=== PATIENT | male | born 2005 | race Caucasian/White ===

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

== ENCOUNTER → 2025-05-02 | Outpatient (CLI) | payer BC, SELFPAY ==
--- OUTSIDE RECORDS SUMMARY | 2025-05-02 12:42 | XMS RPT_ITS | CCD ---
Author Organization [facility] Care Team Providers Care Bag Maker Name Role Phone AMARI VILLARREAL Admitting Unavailable AMARI VILLARREAL Attending Unavailable AMARI VILLARREAL Primary Care Unavailable Emre Price Primary Care Provide r Allergies Allergy Classification Reported Allergen(s) Allergy Type Date of Onset Reaction(s) Facility (1 source) Mold Extract Drug Allergy 8 Unknown [facility] Work Phone: (1 source) Penicillins Propensity to adverse reactions 7 Nausea And Vomiting [facility] (1 source) Seasonal allergy Propensity to adverse reactions 6 Other (See Comments) [facility] Medications Current Medications Medication Drug Class(es) Dates Sig (Normalized) Sig (Original) [id number] 200 actuat albuterol 0.09 mg/actuat metered dose inhaler (1 source) beta2-Adrenergic Agonist Start: 12-21-2021 take 2 puff(s) by inhalation every four hours as needed for cough albuterol 108 (90 Base) MCG/ACT inhaler Inhale 2 Puffs into the lungs every 4 hours as needed for Wheezing, Shortness of Breath or Cough Use with spacer. 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; 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] Onset: 03-12-2020 03-12-2020 Chronic Other screening for suspected conditions (not mental disorders or infectious disease) (1 source) Patient encounter status; Translations: [Encounter for screening, unspecified] Episodic Sprains and strains (2 sources) Sprain of ankle; Translations: [Sprain of unspecified ligament of right ankle, initial encounter] Episodic Past or Other Problems Problem Classification Problem Date Documented Da te Episodic/Chronic Other nutritional; endocrine; and metabolic disorders (1 source) General finding of height; Translations: [Short stature (child)] Onset: 03-12-2020 03-12-2020 Episodic Results Test Name Value Interpretation Reference Range Facil ity Hemoglobin HPLCon 01-03-2022 A Hgb 96.6 % Normal 95.0-100.0 [facility] Comment on above: Order Comment: Relea se to patient->Automatic 98789&Blood Performed By: #### H HPLC #### [place] [address] A2Hgb 2.8 % Normal 1.8-3.2 [facility] Comment on above: Order Comment: Relea se to patient->Automatic 30194&Blood Performed By: #### H HPLC #### [place] [address] Comment ----- Normal [facility] Comment on above: Order Comment: Relea se to patient->Automatic 40665&Blood Result Comment: No a bnormal hemoglobins detected. Performed By: #### H HPLC #### [place] [address] Hgb <1.0 Normal 0.0-1.9 [facility] Comment on above: Order Comment: Relea se to patient->Automatic 56117&Blood Performed By: #### H HPLC #### [place] [address] Hemoglobin HPLCon 12-29-2021 Hemoglobin Variants ----- Normal [facility] Comment on above: Order Comment: Relea se to patient->Automatic 22461&Blood Performed By: #### H HPLC #### [address] [address] Progress Noteon 12-21-2021 Film Developer Authentication Interface Message Text Patient ID: Abundio Feliciano is a 16 y.o. male. His chief complaint(s) include: 16 YEAR WELL CHILD (No concerns) Assessment 1. Encounter for routine child health examination without abnormal findings 2. Asthma, exercise induced 3. Exercise counseling 4. Encounter for dietary counseling and surveillance 5. Need for vaccination Plan Abundio was seen today for 16 year well child. Diagnoses and all orders for this visit: Encounter for routine child health examination without abnormal findings - PHQ9 Assessment With Score - Health Risk Assessment - CRAFFT Asthma, exercise induced - albuterol 108 (90 Base) MCG/ACT inhaler; Inhale 2 Puffs into the lungs every 4 hours as needed for Wheezing, Shortness of Breath or Cough Use with spacer. Exercise counseling Encounter for dietary counseling and surveillance Need for vaccination - Meningococcal B (BEXSERO) Return in about 1 year (around 12/21/2022) for well check. Subjective He is accompanied by his mother. 16 YEAR WELL CHILD Home: Abundio eats meals with family, has an adult to turn to for help and is permitted and able to make independent decisions. Abundio has no home risk identified. Education: Abundio is in freshman year of college. Eating: Abundio eats regular meals including fruits and vegetables, eats breakfast, limits fast food, drinks non-sweetened liquids, has a calcium source and has concerns about body appearance (stature). Abundio has not dieted in the last year and does not have an eating risk identified. Activities & Sports: Abundio has friends, plays individual sports, plays team sports, plays competitive sports and participates in community activities. Drugs: Abundio does not use tobacco, does not use drugs, does not use alcohol and does not vape. Safety: Abundio has a violence free home. Suicidality: Aubndio has ways to cope with stress. Output Urine and Stool Pattern: Urine and Stool Pattern: Normal stool pattern, normal urine pattern. Sleep Sleeping Difficulty: no difficulty sleeping Teen Anticipatory Guidance The following anticipatory guidance was reviewed during the visit: Nutrition: limit junk food/fast food and soft drinks. Safety: home safety, use safety helmet/gear with activities and don't carry or use weapons. Social: avoid or limit screen time, explore heritage and cultural diversity, parental limits and consequences for unacceptable behavior and bullying. Health: age appropriate dental care, age appropriate sleep habits, elevated noise and hearing, avoid situations where drugs and alcohol are present, how to resist peer pressure to smoke, drink, use drugs, don't use tobacco/ alcohol/ drugs/ diet pills/ inhalants, don't smoke or chew tobacco, talk with trusted adult if feeling sad or nervous, learn to manage time and activities, be responsible for attendance/ homework/ course selection, learn about self and strengths, recognize and deal with stress and limit sun exposure/use sunscreen. Screenings Previous Vaccine Reactions: No. Life events information was reviewed-no referral needed Tuberculosis Concerns: Negative Tuberculosis Screen Concerns: no TB Risk Factors Hearing Vision Concerns: Patient wears glasses or contact lenses. The caregiver has no concerns about the patient's hearing. The caregiver has no concerns about the patient's vision. Hyperlipidemia Concerns: Negative Hyperlipidemia Screen Concerns: no Hyperlipidemia Risk Factors Primary Care Review of Systems Objective Vital Signs 12/21/21 1727 12/21/21 1729 BP: 134/83 132/70 Pulse: (!) 110 88 Weight: 63.8 kg Height: 166.3 cm Body mass index is 23.07 kg/m . Physical Exam Nursing note reviewed. Constitutional: He appears well. He is active. No distress. HENT: Head: Atraumatic. Ears: Right Ear: Tympanic membrane and external ear normal. Left Ear: Tympanic membrane and external ear normal. Nose: Nose normal. Mouth/Throat: Mucous membranes are moist. Dentition is normal. Oropharynx is clear. Eyes: Conjunctivae and EOM are normal. No strabismus. Pupils are equal, round, and reactive to light. Neck: Neck supple. Thyroid normal. Cardiovascular: Normal rate, regular rhythm, S1 normal and S2 normal. Pulses are palpable. Heart murmur not heard. Pulmonary/Chest: Breath sounds normal. No respiratory distress. Exhibits no deformity. Abdominal: Soft. Bowel sounds are normal. He exhibits no distension and no mass. There is no hepatosplenomegaly. There is no abdominal tenderness. Genitourinary: Testes and penis normal. No inguinal hernia noted. Musculoskeletal: Cervical back: Normal range of motion and neck supple. Lumbar back: No scoliosis. General: Normal range of motion. Neurological: He is alert. He has normal strength. He exhibits normal muscle tone. Gait normal. Skin: Skin is warm. Skin is not pale. Findings: No rash. Vitals reviewed: Blood pressure 132/70, pulse 88, he (more content not included)... Normal [facility] Inital Evaluation (1) - PTon 09-10-2021 Inital Evaluation (1) - PT [facility] [address] [place] [address] / REHABILITATION SERVICES INITIAL EVALUATION MR#: [id number] Acct: [id number] Name: ABUNDIO FELICIANO Rep #: [id number] : 2005 16 From: Rico Conway DPT, MICHAEL, CSCS Referring Dr.: CARISSA Martinez Status: REG R CR Insurance: [employer] SELF PAY INSURANCE Patient's Visit Information ABUNDIO FELICIANO is a 16 year old M referred to Physical Therapy by Trent Martinez PA-C with a diagnosis of R shoulder strain. Date of Evaluation: 09/10/21 Physical Therapist: Rico Conway DPT, MICHAEL, CSCS - Visit Plan Frequency: 2-3x /Week Duration: 4-6 Weeks Plan: 2-3x/week for 4 weeks for... 1. STM, DTR to R scm, scalenes, UT, lev scap and pec major. Stretch same, MH. 2. restrengthen scap and R shoulder. progress to full UE strength including body weight to tolerance so patient can get back to wrestling. - Subjective R shoulder pain. [place] a pop during wrestling 3 weeks ago, no problems prior. pain ever since on off. Worse with carrying things. No discomfort at rest. Pain is mild 2-3/10 sharply and then gone. Worse 2 weeks ago.No numbness or tingling. No weakness. Doctor called it a sprain. can take iburofen and is taking daily. Not icing. Just resting otherwise. Overall 70% better. Sleeping is OK. Is R handed. School is fine, [employer] Senior this year, will wrestle in College. No other hobbies, enjoys lifting 4 days a week but unabe right now. - Pain R collarbone Pain Intensity (Out of 10): 0 Pain Intensity Range: 0, 3 - Objective R SCM, pectoral major and lev scap/scalene tight and moderately tender to palpation. Posture is forward head and l scapula elevated higher than R with protraction B in scap. Pain with resisted pec on R and IR slightly and flexion minimally and abduction slightly. Scap mobility is fair with some pain with resisted depression. Elbow and wrist and thumb AROM and strength. reflexes 2/3 B bi and tri. Sensation UE WNL to gross light touch. cervical aROM WFL with some tightness looking L but no pain or limtations. - c/s compression. - ext rotation lag test. - drop arm. - HK. - Neer - Balance/Special Test Scores Quick DASH Score: 15.9075 - Goals Goal 1:: Full aROM R UE without pain or hesitation including able to do dips, pushups without pain. Goal Time Frame: 4-6 Weeks Goal 2:: Pt feel 100% back to normal activitiy including lifting at school without pain Goal Time Frame: 4-6 Weeks Goal 3:: 11 score on Quick DASH Goal Time Frame: 4-6 Weeks - Rehabilitation Potential Physical Therapy Diagnosis: R scalene, pec, lev scap strain Rehabilitation Potential: Good - Anticipated Interventions Patient/Client Instruction: Educate patient on: Condition, Plan of Care For the Purpose of:: To decrease pain, To improve muscle performance and motor function, To increase tolerance to activity/condition/po sition, To improve ability of physical actions for home/community/work/l eisure Therapeutic Exercise to Include: Strength training, Postural training, Flexibilty training For the Purpose of:: To decrease pain, To decrease swelling/inflammation , To increase tolerance to activity/condition/po sition Manual Therapy Techniques to Include: Trigger point massage, Passive ROM, Soft tissue mobilization For the Purpose of:: To decrease pain, To increase tolerance to activity/condition/po sition Thermo therapy (hot pack): Yes For the Purpose of:: To decrease pain Thank you for the opportunity to evaluate your patient. For Medicare and Medicare HMO plans, please review the plan of care and approve it. It will need to be FAXED BACK to us at [phone] for Medicare purposes. For Medicare only, by signing this I certify the plan of care. Please let me know if there are questions or concerns regarding this plan of care. Physician Signature: Date : 09/10/21 1545 CC: PENNY Sauceda; CARISSA Martinez EBG Signed Normal [facility] CLAVICLE RTon 08-16-2021 CLAV[address] [address] Patient: ABUNDIO FELICIANO Phone#: : 2005 Age: 16 Gender: M Pt. Type: Out Account: [id number] Location: Ordering: AMARI VILLARREAL Exam Date: 08/16/2021/13:50 Family Phys: Charge Code: [id number] Physician: [place] Order #: [id number] DLP Dose#: PROCEDURE: X-RAY CLAVICLE RT COMPARISON: None. INDICATIONS: Injury. FINDINGS: BONES: Normal. No significant arthropathy or acute abnormality. Patient is skeletally immature. Humeral head is normal in contour. SOFT TISSUES: Negative. No visible soft tissue swelling. EFFUSION: None visible. OTHER: Negative. CONCLUSION: 1. No acute osseous abnormality. If there is concern for ligamentous injury consider bilateral acromioclavicular view with weight-bearing. Dictated by: Alva Clarke MD on 08/16/2021 at 16:49 Approved by: Alva Clarke MD on 08/16/2021 at 16:53 Normal [facility] Progress Noteon 08-16-2021 Film Developer Authentication Interface Message Text Patient ID: Abundio Feliciano is a 16 y.o. male. His chief complaint(s) include: Shoulder Injury (Injured right should 2 days ago during wrestling match, area is painful, no redness or swelling) Assessment 1. Pain of right clavicle Clint Del Castillo was seen today for shoulder injury. Diagnoses and all orders for this visit: Pain of right clavicle - X-Ray Clavicle Right; Future - Cancel: AMB Referral To Orthopedic Surgery; Future - AMB Referral To Orthopedic Surgery; Future Return if symptoms worsen or fail to improve. Will obtain an Xray of the right clavicle. Will also refer to [facility] for evaluation and recommendations. Mom would like the referral now vs. Waiting. Discussed wearing a sling and taking ibuprofen PRN pain. Discussed possible sprain/strain vs. Collar bone fracture. Additional follow up may be determined after results. May continue to apply ice PRN. Please call for any new or worsening symptoms or concerns. Subjective HPI Comments: Here today due to right collar bone pain. Monday was wrestling and he felt and heard a pop. When he breathes he feels a sharp pain; can move His arm but the collar bone area hurts. No bruising or swelling reported. Has been using ice PRN; ibuprofen yesterday and it seemed to help some. Slept well. Denies parasthesia. He is accompanied by his mother. Independent history obtained from mother. Shoulder Injury This problem is new. Primary Care Review of Systems Objective Vital Signs 08/16/21 1305 Temp: 36.4 C (97.6 F) TempSrc: Temporal Weight: 54.3 kg There is no height or weight on file to calculate BMI. Physical Exam Constitutional: He appears well. He is active. No distress. HENT: Head: Atraumatic. Mouth/Throat: Mucous membranes are moist. Eyes: Conjunctivae are normal. Right eyelid exhibits no discharge. Left eyelid exhibits no discharge. Right conjunctiva is not injected. Left conjunctiva is not injected. Cardiovascular: Normal rate, regular rhythm, S1 normal and S2 normal. Heart murmur not heard. Pulmonary/Chest: Effort normal and breath sounds normal. There is normal air entry. No stridor. No respiratory distress. Air movement is not decreased. He has no wheezes. He has no rhonchi. He has no rales. Exhibits no retraction. Genitourinary: Did not examine. Musculoskeletal: Cervical back: Normal range of motion. General: Tenderness (medial aspect of right clavicle; no crepitus palpated; no ecchymosis, color and temperature even overlying the area. Full ROM of right shoulder- reports discomfort in the medial aspect of the clavicle with ROM of the shoulder) present. No deformity, signs of injury or edema. Normal range of motion. Neurological: He is alert. Skin: Skin is warm. Skin is not pale. Findings: No rash. Vitals reviewed: Temperature 36.4 C (97.6 F), temperature source Temporal, weight 54.3 kg. Normal [facility] Encounters Encounter Date Encounter Type Care Provider Facility Start: 12-29-2021 End: 12-29-2021 Subsequent hospital visit by physician Emre MARION Work Phone: [facility] Comment on above: Screening for condit ion Start: 09-21-2021 End: 09-21-2021 Discharged [facility] Start: 08-16-2021 End: 08-16-2021 ambulatory AMARI VILLARREAL [facility] Plan of Treatment Date Care Activity Detail Author Start: 11-02-2025 Tetanus Diphtheria a nd Pertussis Vaccines (6 - Td or Tdap) Tetanus Diphtheria and Pertussis Vaccines (6 - Td or Tdap) [facility] Start: 12-21-2022 Well Visit Well Visit [facility] Start: 02-03-2022 FLU (#1) FLU (#1) [facility] Hemoglobin fractj/qu antj chromotography Hemoglobin HPLC (Lab Collect) Lab Routine Screening for condition 12/29/2021 2[facility] PM [facility] Work Phone: Immunizations Immunization Date Immunization Notes Care Provider Gloria melgoza 12-21-2021 meningococcal B vacc ine, recombinant, OMV, adjuvanted Emre Marcelino APRN-SCOUT LEASER Work Phone: [facility] 12-17-2020 meningococcal B vacc ine, recombinant, OMV, adjuvanted Emre Marcelino APRN-SCOUT LEASER Work Phone: [facility] 12-17-2020 meningococcal polysaccharide (groups A, C, Y and W-135) diphtheria toxoid conjugate vaccine (MCV4P) Emre Marcelino APRN-SCOUT LEASER Work Phone: [facility] 10-01-2020 PFIZER (purple cap) COVID-19, mRNA, LNP-S, 30mcg/0.3mL dose Emre Fischern SQL REPORT WRITER-SCOUT LEASER Work Phone: [facility] 09-04-2020 PFIZER (purple cap) COVID-19, mRNA, LNP-S, 30mcg/0.3mL dose Emre Sonianan SQL REPORT WRITER-SCOUT LEASER Work Phone: [facility] 12-17-2019 hepatitis A vaccine, pediatric/adolescent dosage, 2 dose schedule Emre Marcelino SQL REPORT WRITER-SCOUT LEASER Work Phone: [facility] 12-17-2019 Human Papillomavirus 9-valent vaccine [facility]re [facility] Work Phone: [facility] 12-14-2018 hepatitis A vaccine, pediatric/adolescent dosage, 2 dose schedule Emre Sonianan SQL REPORT WRITER-SCOUT LEASER Work Phone: [facility] 12-14-2018 Human Papillomavirus 9-valent vaccine Emre Sonianan SQL REPORT WRITER-[facility] Work Phone: [facility] 11-03-2015 meningococcal oligosaccharide (groups A, C, Y and W-135) diphtheria toxoid conjugate vaccine (MCV4O) [facility]re FischerC[facility] Work Phone: [facility] 11-03-2015 tetanus toxoid, redu meg diphtheria toxoid, and acellular pertussis vaccine, adsorbed Emre Sonianan SQL REPORT WRITER-SCOUT LEASER Work Phone: [facility] 09-28-2012 poliovirus vaccine, inactivated Emre Sonianan SQL REPORT WRITER-SCOUT LEASER Work Phone: [facility] 01-05-2009 diphtheria, tetanus toxoids and acellular pertussis vaccine Emre Marcelino SQL REPORT WRITER-[facility] Work Phone: [facility] 01-05-2009 Diphtheria, tetanus toxoids and acellular pertussis vaccine, and poliovirus vaccine, inactivated Emre [facility] Work Phone: [facility] 01-05-2009 measles, mumps and rubella virus vaccine [facility]re [facility] Work Phone: [facility] 01-05-2009 poliovirus vaccine, inactivated [facility]re [facility] Work Phone: [facility] 01-05-2009 varicella virus vaccine Sophia ld [facility] Work Phone: [facility] 07-22-2005 diphtheria, tetanus toxoids and acellular pertussis vaccine [facility] Work Phone: [facility] 07-22-2005 poliovirus vaccine, inactivated [facility] Work Phone: [facility] 05-10-2005 haemophilus influenz ae type b vaccine, PRP-T conjugate [facility]re [facility] Work Phone: [facility] 05-10-2005 varicella virus vaccine Sophia ld [facility] Work Phone: [facility] 04-13-2005 haemophilus influenz ae type b vaccine, PRP-T conjugate [facility] Work Phone: [facility] 04-05-2005 diphtheria, tetanus toxoids and acellular pertussis vaccine [facility] Work Phone: [facility] 04-05-2005 haemophilus influenz ae type b vaccine, PRP-T conjugate [facility] Work Phone: [facility] 01-21-2005 measles, mumps and rubella virus vaccine Emrejane [facility] Work Phone: [facility] 01-21-2005 pneumococcal conjuga te vaccine, 7 valent [facility] Work Phone: [facility] 2004 hepatitis B vaccine, pediatric or pediatric/adolescent dosage Emre Ryland SQL REPORT WRITER-SCOUT LEASER Work Phone: [facility] 2004 pneumococcal conjuga te vaccine, 7 valent Emre Marcelino SQL REPORT WRITER-SCOUT LEASER Work Phone: [facility] 2004 diphtheria, tetanus toxoids and acellular pertussis vaccine Emre Marcelino SQL REPORT WRITER-[facility] Work Phone: [facility] 2004 haemophilus influenz ae type b vaccine, PRP-T conjugate Emre Sonianan SQL REPORT WRITER-[facility] Work Phone: [facility] 2004 pneumococcal conjuga te vaccine, 7 valent Emre Marcelino SQL REPORT WRITER-[facility] Work Phone: [facility] 2004 poliovirus vaccine, inactivated Emre Marcelino SQL REPORT WRITER-[facility] Work Phone: [facility] 2004 diphtheria, tetanus toxoids and acellular pertussis vaccine Emre Marcelino SQL REPORT WRITER-[facility] Work Phone: [facility] 2004 haemophilus influenz ae type b vaccine, PRP-T conjugate Emre Sonianan SQL REPORT WRITER-[facility] Work Phone: [facility] 2004 pneumococcal conjuga te vaccine, 7 valent Emre Sonianan SQL REPORT WRITER-[facility] Work Phone: [facility] 2004 poliovirus vaccine, inactivated Emre Marcelino SQL REPORT WRITER-SCOUT LEASER Work Phone: [facility] 2004 hepatitis B vaccine, pediatric or pediatric/adolescent dosage Emre Marcelino SQL REPORT WRITER-[facility] Work Phone: [facility] 2004 hepatitis B vaccine, pediatric or pediatric/adolescent dosage Emre Marcelino SQL REPORT WRITER-SCOUT LEASER Work Phone: [facility] Payers Date Payer Category Payer Unknown [employer] [id number] 2012-Present [address] [place] [address] [id number] 1970 Unknown [id number] Self-pay SELF PAY INSURANCE [id number] Unknown [id number] Social History Date Type Detail Facility Start: 09-20-2017 Tobacco smoking stat [facility] Unknown if ever smoked [facility] Work Phone: Start: 2004 Sex Assigned At Male W [facility] Work Phone: Start: 12-21-2021 Tobacco smoking stat [facility] Never smoked tobacco [facility] Start: 12-21-2021 Tobacco use and exposure Smokeless tobacco non-user [facility] Start: 12-21-2021 Alcohol intake Not Asked [facility] Start: 2004 Sex Assigned At Not on file [facility] Start: 12-19-2021 End: 12-29-2021 Exposure to SARS-CoV-2 (event) Not sure [facility] Evaluation note Note Date & Type Note Facility Evaluation note No assessment information availa ble [facility] Work Phone: Evaluation note Note Date & Type Note Facility Evaluation note Diagnosis Screening for condition Screening for unspecified condition documented in this encounter [facility] Summary Purpose Family History No Family History Records FoundNo Family History Records FoundNo Family History Records Found Advance Directives No Advanced Directives Records FoundNo Advanced Directives Records FoundNo Advanced Directives Records Found Chief Complaint and Reason for Visit Chief Complaint SPRAIN OF RIGHT SHOU LDER.RX HERE Additional Source Comments (unrecognized sect ion and content) No Status Records FoundNo Status Records FoundNo Status Records Found INFORMATION SOURCE (unrecogn ized section and content) DATE CREATED AUTHOR 08/17/2021 Deric De La Cruz [facility] DATE CREATED AUTHOR AUTHOR'S ORGANIZ ATION 11/22/2021 [facility] DATE CREATED AUTHOR AUTHOR'S ORGANIZ ATION 01/05/2022 [facility] Goals (unrecognized section and content) Goals may be documented in a n alternate section Care Teams (unrecognized sec tion and content) Bag Maker Relationship Specialty Start Date End Date Emre Marcelino, SQL REPORT WRITER-SCOUT LEASER [address] [place] [address] PCP - General 08/05/20 FOR RECORDS PERTAINING TO PATIENTS WHO ARE OR HAVE BEEN ENROLLED IN A CHEMICAL DEPENDENCY/SUBSTANCEABUSE PROGRAM, SOME INFORMATION MAY BE OMITTED. This clinical summary was aggregated from multiple sources. Caution should be exercised in using it in the provision of clinical care. This summary normalizes information from multiple sources, and as a consequence, information in this document may materially change the coding, format and clinical context of patient data. In addition, data may be omitted in some cases. CLINICAL DECISIONS SHOULD BE BASED ON THE PRIMARY CLINICAL RECORDS. [employer] provides no warranty or guarantee of the accuracy or completeness of information in this document.
[2025-05-02 17:46] LABS: Hematocrit 42.3 % (40-54); Hemoglobin 13.7 g/dL (13.0-16.5); Mean Corp Hgb Conc 32.4 g/dL (32-36); Mean Corpuscular Volume 93.8 fL (80-94); Mean Platelet Vol. 12.2 fl (6.2-12.0); Platelet Count 184 K/mm3 (150-450); RBC Distribution Width CV 13.1 % (11.6-14.6); RBC Distribution Width SD 45.0 fl (35.1-43.9); Red Blood Count 4.51 M/mm3 (4.6-6.2); White Blood Count 5.8 K/mm3 (4.4-11.0)
[2025-05-02 18:12] LABS: AST(SGOT) 26 U/L (<=37); Alanine Aminotransfer ALT/SGPT 43 U/L (<=46); Albumin, Serum 4.7 g/dL (3.5-5.0); Alkaline Phosphatase 47 U/L (40-129); Anion Gap 11 (5-15); BUN 28 mg/dL (4-19); BUN/Creat Ratio 21.7 RATIO (10-20); Calcium,Total 9.8 mg/dL (7.6-11.0); Carbon Dioxide 27.1 mmol/L (21.0-32.0); Chloride 101 mmol/L (98-108); Cholesterol 180 mg/dL (<=190); Globulin 2.3 g/dL (2.2-4.2); Glucose 92 mg/dL (70-99); Low Density Lipoprotein Calc. 103 mg/dL; Potassium 4.3 mmol/L (3.3-5.1); Triglycerides 78 mg/dL; Very Low Density Lipoprotein 16 mg/dL (5-40); Vitamin B12 605 pg/mL (180-914); Vitamin D,25 Hydroxy 31.7 ng/mL (30-100); cholesterol:hdl ratio screen 2.86
[2025-05-08 12:08] LABS: Testosterone, % Free 2.84 % (1.50-4.20); Testosterone, Free 1.08 ng/dL (5.00-21.00)
== END | disposition home or self-care (01) ==
PROVIDERS: Family Medicine; PCP Family Medicine; Referring Provider Family Medicine; Visit Provider Family Medicine
DX: Z13.220 Encounter for screening for lipoid disorders (principal); R53.83 Other fatigue; Z13.1 Encounter for screening for diabetes mellitus
CPT/HCPCS: 36415; 80053; 80061; 82306; 82607; 83036; 84402; 84403; 84443; 85027